=== PATIENT | female | born 1945 | race Caucasian/White ===

== ENCOUNTER 2018-09-18 12:00 | Day surgery (SDC) | payer OTHER | END 2018-09-18 16:20 | disposition home or self-care (01) | LOC: AMB-ENDOS 12:00 | DX: K57.32 Diverticulitis of large intestine without perforation or abscess without bleeding (principal); K64.2 Third degree hemorrhoids; Z12.11 Encounter for screening for malignant neoplasm of colon ==

== ENCOUNTER 2023-10-03 10:47 | Outpatient (CLI) | payer OTHER | END 2023-10-03 11:04 | disposition home or self-care (01) | LOC: MRI 10:47 | PROVIDERS: ATTEND Specialist | DX: R41.3 Other amnesia (principal); R27.8 Other lack of coordination | CPT/HCPCS: 70551 ==

== ENCOUNTER 2025-01-08 11:13 | Outpatient (CLI) | payer OTHER | END 2025-01-08 11:15 | disposition home or self-care (01) | LOC: MAMO-SONO 11:13 | PROVIDERS: ATTEND Specialist | DX: N63.0 Unspecified lump in unspecified breast (principal); Z12.31 Encounter for screening mammogram for malignant neoplasm of breast; N64.0 Fissure and fistula of nipple; R22.1 Localized swelling, mass and lump, neck ==